=== PATIENT | female | born 1990 | race Caucasian/White ===

== ENCOUNTER 2019-03-26 14:50 | Emergency (ER) | payer OTHER ==
[2019-03-26] MEDS ORDERED: METOCLOPRAMIDE HCL 10 MG TABLET PO ONE (16:08)
[2019-03-26] MEDS ORDERED: METOCLOPRAMIDE HCL INJ/PF 10 MG/2 ML SDV IV ONE (16:11)
[2019-03-26] MEDS ORDERED: NORMAL SALINE 1000 ML 1,000 ML IV ONE (16:11)
--- NOTE | 2019-03-26 16:16 | ER Document Report ---
ED Medical Screen (RME) - General Chief Complaint: Nausea/Vomiting Stated Complaint: VOMITING Time Seen by Provider: 03/26/19 16:07 Mode of Arrival: Ambulatory Information source: Patient Notes: Patient is a 29-year-old G2, P1 who presents approximately 10 weeks with nausea and vomiting x3 days, unable to keep any food or drink down. She states she tried Unisom and B6 but it made her much worse. TRAVEL OUTSIDE OF THE [place] IN LAST 30 DAYS: No - Related Data Allergies/Adverse Reactions: No Known Allergies Allergy (Unverified 03/26/19 15:07) Past Medical History - General Information source: Patient - Social History Chew tobacco use (# tins/day): No Frequency of alcohol use: None Drug Abuse: None Renal/ Medical History: Denies: Hx Peritoneal Dialysis Review of Systems - Review of Systems Gastrointestinal: See HPI Female Genitourinary: See HPI Physical Exam - Vital signs Vitals: Temp Pulse Resp BP Pulse Ox 97.9 F 88 12 120/81 100 03/26/19 15:34 03/26/19 15:34 03/26/19 15:34 03/26/19 15:34 03/26/19 15:34 - Notes Notes: PHYSICAL EXAMINATION: GENERAL: Holding emesis bag, uncomfortable appearing, but in no acute distress. ABDOMEN: Soft, no tenderness. No guarding, no rebound Course - Vital Signs Vital signs: Temp Pulse Resp BP Pulse Ox 97.9 F 88 12 120/81 100 03/26/19 15:34 03/26/19 15:34 03/26/19 15:34 03/26/19 15:34 03/26/19 15:34
[2019-03-26 17:20] LABS: ABSOLUTE LYMPHOCYTES (AUTO) 2.4 10^3/uL (0.5-4.7); ABSOLUTE MONOCYTES (AUTO) 0.5 10^3/uL (0.1-1.4); BASOPHILS % (AUTO) 0.2 % (0-2); EOSINOPHILS % (AUTO) 0.2 % (0-6); HEMATOCRIT 42.2 % (36.0-47.0); HEMOGLOBIN 14.7 g/dL (12.0-15.5); LYMPHOCYTES % (AUTO) 21.9 % (13-45); MEAN CORPUSCULAR HEMOGLOBIN 31.5 pg (27.0-33.4); MEAN CORPUSCULAR HGB CONC 34.9 g/dL (32.0-36.0); MEAN CORPUSCULAR VOLUME 90 fl (80-97); MONOCYTES % (AUTO) 4.2 % (3-13); PLATELET COUNT 286 10^3/uL (150-450); RED BLOOD COUNT 4.67 10^6/uL (3.72-5.28); RED CELL DISTRIBUTION WIDTH 13.6 % (11.5-14.0); SEGMENTED NEUTROPHILS % (AUTO) 73.5 % (42-78); TOTAL CELLS COUNTED % (AUTO) 100 %; WHITE BLOOD COUNT 10.9 10^3/uL (4.0-10.5)
[2019-03-26 17:28] LABS: APPEARANCE,URINE CLOUDY; BILIRUBIN,URINE NEGATIVE (NEGATIVE); GLUCOSE, URINE NEGATIVE (NEGATIVE); KETONES,URINE 20 mg/dL (NEGATIVE); LEUKOCYTE ESTERASE,URINE LARGE (NEGATIVE); NITRITE,URINE NEGATIVE (NEGATIVE); PROTEIN,URINE NEGATIVE (NEGATIVE); URINE SPECIFIC GRAVITY 1.026; UROBILINOGEN,URINE NEGATIVE mg/dL (<2.0)
[2019-03-26 17:30] LABS: COLOR,URINE YELLOW
[2019-03-26 17:37] LABS: ALANINE AMINOTRANSFERASE 20 U/L (9-52); ALBUMIN 4.9 g/dL (3.5-5.0); ALKALINE PHOSPHATASE 45 U/L (38-126); ANION GAP 11 (5-19); ASPARTATE AMINO TRANSFERASE 23 U/L (14-36); BILIRUBIN,DIRECT 0.2 mg/dL (0.0-0.4); BILIRUBIN,TOTAL 0.5 mg/dL (0.2-1.3); BLOOD UREA NITROGEN 8 mg/dL (7-20); CARBON DIOXIDE 26 mmol/L (22-30); CHLORIDE 100 mmol/L (98-107); GLUCOSE 82 mg/dL (75-110); POTASSIUM 4.2 mmol/L (3.6-5.0); TOTAL PROTEIN 8.1 g/dL (6.3-8.2)
[2019-03-26] MEDS ORDERED: NITROFURANTOIN MONOHYD/M-CRYST 100 MG CAPSULE PO ONE (18:49)
--- NOTE | 2019-03-26 18:55 | ER Document Report ---
ED General - General Chief Complaint: Nausea/Vomiting Stated Complaint: VOMITING Time Seen by Provider: 03/26/19 16:07 Mode of Arrival: Ambulatory TRAVEL OUTSIDE OF THE [place] IN LAST 30 DAYS: No - HPI Notes: Patient is a 29-year-old female G7, P3 at 10 weeks gestation that presents to the emergency department for chief complaint of nausea and vomiting. Patient reports increased nausea and vomiting over the last 3 days. She called her [facility] office today who referred her to the ER for IV hydration. Patient denies any abdominal pain fevers or chills. She denies dysuria and urinary frequency. She has not had any pelvic pain, vaginal bleeding or vaginal discharge. She has seen OB throughout her and has not had any early complications. Patient received fluids and Reglan in triage and reports her nausea has completely resolved. She states she now feels hungry. She had been trying Unisom and B6 at home without much improvement. Past Medical History: Negative Past Surgical History: D&C x2 Social History: Denies drugs alcohol and tobacco Family History: Reviewed and noncontributory for presenting illness Allergies: Reviewed, see documented allergy list. REVIEW OF SYSTEMS: CONSTITUTIONAL : No fever No chills No diaphoresis No recent illness EENT: No vision changes No congestion No sore throat CARDIOVASCULAR: No chest pain No palpitations RESPIRATORY: No shortness of breath No cough No difficulty breathing GASTROINTESTINAL: No abdominal pain nausea vomiting No diarrhea GENITOURINARY: No dysuria No hematuria No difficulty urinating MUSCULOSKELETAL: No back pain No leg pain No arm pain SKIN: No rashes No lesions LYMPHATIC: No swollen, enlarged glands. NEUROLOGICAL: No lightheadedness No headache No weakness No paresthesias PSYCHIATRIC: No anxiety No depression PHYSICAL EXAMINATION: Vital signs reviewed, nursing noted reviewed. GENERAL: Well-appearing, well-nourished and in no acute distress. HEAD: Atraumatic, normocephalic. EYES: Eyes appear normal, extraocular movements intact, sclera anicteric, conjunctiva are normal. ENT: nares patent, oropharynx clear without exudates. Moist mucous membranes. NECK: Normal range of motion, supple without lymphadenopathy LUNGS: Breath sounds clear to auscultation bilaterally and equal. No wheezes rales or rhonchi. HEART: Regular rate and rhythm without murmurs ABDOMEN: Soft, nontender, normoactive bowel sounds. No rebound, guarding, or rigidity. No masses appreciated. EXTREMITIES: Nontender, good range of motion, no pitting or edema. NEUROLOGICAL: No focal neurological deficits. Moves all extremities spontaneously Motor and sensory grossly intact on exam. PSYCH: Normal mood, normal affect. SKIN: Warm, Dry, normal turgor, no rashes or lesions noted on exposed skin - Related Data Allergies/Adverse Reactions: No Known Allergies Allergy (Unverified 03/26/19 15:07) Past Medical History - General Information source: Patient - Social History Smoking Status: Never Smoker Chew tobacco use (# tins/day): No Frequency of alcohol use: None Drug Abuse: None Family History: Reviewed & Not Pertinent Patient has suicidal ideation: No Patient has homicidal ideation: No Renal/ Medical History: Denies: Hx Peritoneal Dialysis Physical Exam - Vital signs Vitals: Temp Pulse Resp BP Pulse Ox 97.9 F 88 12 120/81 100 03/26/19 15:34 03/26/19 15:34 03/26/19 15:34 03/26/19 15:34 03/26/19 15:34 Course - Re-evaluation Re-evalutation: 03/26/19 18:54 Vitals reviewed. Nursing notes reviewed. Patient is well-appearing and in no acute distress. She is currently asymptomatic since having treatment in triage. Her urinalysis is borderline. She does not currently have symptoms of UTIs but states she does get them frequently when she is not and more frequently when she is . Because her vomiting has increased in the last few days and this may be secondary to early UTI she will be started on Macrobid. She will follow closely with [facility] for reevaluation. She will continue to hydrate with water. We did discuss dietary changes to avoid aggravating foods like spicy food, fried food and citric foods. Patient is stable at discharge. Laboratory 03/26/19 03/26/19 03/26/19 16:30 16:30 16:30 WBC 10.9 H RBC 4.67 Hgb 14.7 Hct 42.2 MCV 90 MCH 31.5 MCHC 34.9 RDW 13.6 Plt Count 286 Seg Neutrophils % 73.5 Lymphocytes % 21.9 Monocytes % 4.2 Eosinophils % 0.2 Basophils % 0.2 Absolute Neutrophils 8.0 Absolute Lymphocytes 2.4 Absolute Monocytes 0.5 Absolute Eosinophils 0.0 Absolute Basophils 0.0 Sodium 137.1 Potassium 4.2 Chloride 100 Carbon Dioxide 26 Anion Gap 11 BUN 8 Creatinine 0.63 Est GFR ( Amer) > 60 Est GFR (Non-Af Amer) > 60 Glucose 82 Calcium 10.0 Total Bilirubin 0.5 Direct Bilirubin 0.2 Neonat Total Bilirubin Not Reportable Neonat Direct Bilirubin Not Reportable Neonat Indirect Bili Not Reportable AST 23 ALT 20 Alkaline Phosphatase 45 Total Protein 8.1 Albumin 4.9 Urine Color YELLOW Urine Appearance CLOUDY Urine pH 5.0 Ur Specific [place] 1.026 Urine Protein NEGATIVE Urine Glucose (UA) NEGATIVE Urine Ketones 20 H Urine Blood NEGATIVE Urine Nitrite NEGATIVE Urine Bilirubin NEGATIVE Urine Urobilinogen NEGATIVE Ur Leukocyte Esterase LARGE H Urine WBC (Auto) 9 Urine RBC (Auto) 2 Squamous Epi Cells Auto 35 Urine Mucus (Auto) MANY Urine Ascorbic Acid NEGATIVE - Vital Signs Vital signs: Temp Pulse Resp BP Pulse Ox 97.9 F 88 12 120/81 100 03/26/19 15:34 03/26/19 15:34 03/26/19 15:34 03/26/19 15:34 03/26/19 15:34 - Laboratory Result Diagrams: 03/26/19 16:30 03/26/19 16:30 Laboratory results interpreted by me: 03/26/19 03/26/19 16:30 16:30 WBC 10.9 H Urine Ketones 20 H Ur Leukocyte Esterase LARGE H Discharge - Discharge Clinical Impression: Vomiting affecting , Acute UTI Condition: Stable Disposition: HOME, SELF-CARE Instructions: ([facility]), Urinary Tract Infection ([facility]) Additional Instructions: Please return to the emergency department if you have any worsening, or concern of your symptoms. Please return to the emergency department if you develop chest pain, difficulty breathing, severe abdominal pain, or ongoing vomiting. Please follow-up with your primary care physician in 2-3 days and any other recommended physicians. If prescribed, take all medications as directed. If you have any questions or concerns do not hesitate to return the emergency department for evaluation. Contact your [facility] tomorrow to schedule a follow-up appointment in the next 2 to 3 days Prescriptions: Nitrofurantoin Macrocrystal [Macrodantin] 100 mg PO BID 5 Days capsule Referrals: [facility] [Provider Group] - Follow up as needed
[2019-03-26 19:04] VITALS: BP 103/72
== END 2019-03-26 19:21 | disposition home or self-care (01) ==
LOC: ER 14:50
DX: O21.9 Vomiting of pregnancy, unspecified (principal); O23.41 Unspecified infection of urinary tract in pregnancy, first trimester; Z3A.10 10 weeks gestation of pregnancy
CPT/HCPCS: 99283; 96361; 96374; 36415; 87086; 85025; 80053; 81001; J2765; J7030; J8499

== ENCOUNTER 2019-09-17 23:32 | Outpatient (CLI) | payer OTHER ==
[2019-09-18 00:03] LABS: APPEARANCE,URINE SLIGHTLY-CLOUDY; BILIRUBIN,URINE NEGATIVE (NEGATIVE); COLOR,URINE YELLOW; GLUCOSE, URINE NEGATIVE (NEGATIVE); KETONES,URINE NEGATIVE (NEGATIVE); LEUKOCYTE ESTERASE,URINE LARGE (NEGATIVE); NITRITE,URINE NEGATIVE (NEGATIVE); PROTEIN,URINE NEGATIVE (NEGATIVE); URINE SPECIFIC GRAVITY 1.019
[2019-09-18 00:15] LABS: URINE AMPHETAMINES SCREEN NEGATIVE; URINE BARBITURATES SCREEN NEGATIVE; URINE BENZODIAZEPINES SCREEN NEGATIVE; URINE COCAINE SCREEN NEGATIVE; URINE MARIJUANA (THC) SCREEN NEGATIVE; URINE METHADONE SCREEN NEGATIVE; URINE PHENCYCLIDINE SCREEN NEGATIVE
--- NOTE | 2019-09-18 00:44 | Non Stress Test Report ---
Non Stress Test Datetime Report Generated by CPN: 09/18/2019 00:43 DEMOGRAPHIC EGA NST: 35.2 EGA NST: 33.0 INDICATION Indication for Study (NST) Other: LC- pre-E eval VITAL SIGNS Temperature - NST: 98.0 RESP - NST: 16 MONITORING Monitor Explained: Monitor Explained; Test Explained; Patient Verbalized Understanding Time on Monitor: 09/17/2019 23:50 Time on Monitor: 09/01/2019 09:04 Time off Monitor: 09/18/2019 00:33 NST Duration: 43 NST INTERVENTIONS NST Interventions: Reposition Patient NST Interventions: PO Hydration; Reposition Patient Physician Notified NST: Dr. Ignacio Physician Notified NST: Dr. Ignacio on unit, reviewed BABY A: [id number] BABY A Movement : Present Contraction Frequency : none Contraction Frequency : none FHR Baseline : 130 Accelerations : 15X15 Decelerations : None Variability : Moderate 6-25bpm NST Review: Meets Criteria for Reactive NST NST Review and Verified By : Steve Aguilar RN NST Results: Reactive NST REPORT Report Trigger: Send Report
== END 2019-09-18 00:42 | disposition home or self-care (01) ==
LOC: LC 23:32
PROVIDERS: ATTEND Obstetrics & Gynecology
PROC: 4A1HXCZ Monitoring of Products of Conception, Cardiac Rate, External Approach (ICD-10-PCS; principal; 2019-09-17)
DX: O16.3 Unspecified maternal hypertension, third trimester (principal); Z3A.35 35 weeks gestation of pregnancy
CPT/HCPCS: 80307; 81001

== ENCOUNTER 2019-10-09 19:26 | Outpatient (CLI) | payer OTHER ==
[2019-10-09 20:00] LABS: APPEARANCE,URINE CLOUDY; BILIRUBIN,URINE NEGATIVE (NEGATIVE); COLOR,URINE YELLOW; GLUCOSE, URINE NEGATIVE (NEGATIVE); KETONES,URINE NEGATIVE (NEGATIVE); LEUKOCYTE ESTERASE,URINE LARGE (NEGATIVE); NITRITE,URINE NEGATIVE (NEGATIVE); PROTEIN,URINE NEGATIVE (NEGATIVE); URINE SPECIFIC GRAVITY 1.016; UROBILINOGEN,URINE NEGATIVE mg/dL (<2.0)
[2019-10-09 20:19] LABS: URINE AMPHETAMINES SCREEN NEGATIVE; URINE BARBITURATES SCREEN NEGATIVE; URINE BENZODIAZEPINES SCREEN NEGATIVE; URINE COCAINE SCREEN NEGATIVE; URINE MARIJUANA (THC) SCREEN NEGATIVE; URINE METHADONE SCREEN NEGATIVE; URINE PHENCYCLIDINE SCREEN NEGATIVE
--- NOTE | 2019-10-09 21:52 | Non Stress Test Report ---
Non Stress Test Datetime Report Generated by CPN: 10/09/2019 21:52 DEMOGRAPHIC EGA NST: 38.3 INDICATION Indication for Study (NST) Other: 38.3 gestation with discharge MONITORING Monitor Explained: Monitor Explained; Test Explained; Patient Verbalized Understanding Time on Monitor: 10/09/2019 19:43 Time off Monitor: 10/09/2019 20:11 NST Duration: 28 NST INTERVENTIONS NST Interventions: PO Hydration Physician Notified NST: Dr. Younger BABY A: [id number] BABY A Movement : Present Contraction Frequency : 2-11 FHR Baseline : 130 Accelerations : 15X15 Decelerations : None Variability : Moderate 6-25bpm NST Review: Meets Criteria for Reactive NST NST Review and Verified By : D Bellavance RN NST Results: Reactive NST REPORT Report Trigger: Send Report
== END 2019-10-09 20:18 | disposition home or self-care (01) ==
LOC: LC 19:26
PROVIDERS: ATTEND Obstetrics & Gynecology
PROC: 4A1HXCZ Monitoring of Products of Conception, Cardiac Rate, External Approach (ICD-10-PCS; principal; 2019-10-09)
DX: O47.1 False labor at or after 37 completed weeks of gestation (principal); Z3A.38 38 weeks gestation of pregnancy
CPT/HCPCS: 80307; 81005; 84112

== ENCOUNTER 2019-10-14 06:50 | Inpatient (IN) | payer OTHER ==
[2019-10-14] MEDS ORDERED: MISOPROSTOL 0.2 MG TABLET ONE (07:35)
[2019-10-14] MEDS ORDERED: LIDOCAINE 1% INJ-PF (10 MG/ML) 30 ML SDV ONE (07:35)
[2019-10-14] MEDS ORDERED: OXYTOCIN/NORMAL SALINE 0 UNIT/0 ML RTUINJ ONE (07:35)
[2019-10-14] MEDS ORDERED: OXYTOCIN 10 UNIT/ML VIAL ONE (07:35)
[2019-10-14] MEDS ORDERED: DINOPROSTONE 10 MG VAGINAL INSERT.SR PV PRN (07:55)
[2019-10-14] MEDS ORDERED: RINGERS SOLUTION,LACTATED 300 ML IV ONE (07:55)
[2019-10-14] MEDS ORDERED: OXYTOCIN/NORMAL SALINE 20 UNIT/1,000 ML RTUINJ IV PRN ×2 (07:55→18:27)
--- NOTE | 2019-10-14 08:23 | Admission Physical ---
Datetime Report Generated by CPN: 10/14/2019 08:22 CURRENT ADMISSION Indication for Induction- Other: GDM- on glyburide Admit Impression : Term, Intrauterine ; Intact Membranes Admit Plan: Admit to Unit; Initiate Labor Induction Protocol ALLERGIES Medication Allergies: No Medication Allergies: No Known Allergies (10/14/2019) Latex: No Latex Allergies Food Allergies: none Environmental Allergies: none OBSTETRICAL HISTORY EDC: 10/20/2019 00:00 : 7 Para: 3 Term: 3 : 0 SAB: 0 IAB: 0 Ectopic: 0 Livin Cesareans: 0 VBACs: 0 Multiple Births: 0 Gestational Diabetes: No Rh Sensitization: No Incompetent Cervix: No CHARLIE: No Infertility: No ART Treatment: No Uterine Anomaly: No IUGR: No Hx Previous C/S: No Macrosomia: No Hx Loss/Stillborn: No PIH: No Hx : No Placenta Previa/Abruption: No Depression/PP Depression: Yes PTL/PROM: No Post Hemorrhage: No Current Procedures: Ultrasound; NST Obstetrical History Comments: G1: 2008, vaginal G2: 2010, SAB G3: 2013, vaginal G4: 2016, vaginal SEE RECORDS Alcohol: No Marijuana : No Cocaine: No Other Illicit Drugs: No Cigarettes: Never Smoker. 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 Heart Disease: No Hosp/Surgery: Yes Autoimmune Disorder: No Anesthetic Complications: No Kidney Disease: No Abnormal Pap Smear: No Neuro/Epilepsy: No Psychiatric Disorders: Yes Other Medical Diseases: No Hepatitis/Liver Disease: No Significant Family History: No Varicosities/Phlebitis: No Trauma/Violence : No Thyroid Dysfunction: No Medical History Comments: anxiety, D_C march 2013 and january 2019 INFECTIOUS HISTORY Gonorrhea: No Genital Herpes: No Chlamydia: Yes Tuberculosis: No Syphilis: No Hepatitis: No HIV/AIDS Exposure: No Rash or Viral Illness: No HPV: Yes Infectious History Comments: chlamydia test to cure Jul 2019 (Annotations: Data stored by [facility] on behalf of user) PHYSICAL EXAM General: Normal HEENT: Normal Neurologic: Normal Thyroid: Normal Heart: Normal Lungs: Normal Breast: Normal Back: Normal Abdomen: Normal Genitourinary Exam: Normal Extremities: Normal DTRs: Normal Pelvic Type: Adequate Vital Signs: Reviewed; Within Normal Limits VAGINAL EXAM Contraction Comments: irritability MEMBRANES Membranes: Intact FETUS A Monitoring: External US FHR- Baseline: 135 Variability: Moderate 6-25bpm Accelerations: 15X15 Decelerations: None FHR Category: Category I Admit Comment: here this morning for IOL. Hx GDM-on glyburide this . GBS negative. Hx +chlamydia w/ negative JONATAN result on 09/23/19. Pt doing well this morning, no complaints of SROM or contractions. States was 3-4 cm at last VE check. Orders for Pitocin. Plan of care discussed w/ patient. She is considering an epidural- states usually gets one, and goes fast once she is in active labor. Vertex on leapolds this morning. Cat 1 FHR tracing. EFW 7 pounds. Attending MD is Dr Kline. PLANS FOR LABOR AND DELIVERY Labor and Delivery: None Pain Management: Medications; Epidural Feeding Preference: Both Benefit of Breast Feed Discussed: Yes Circumcision: N/A INFORMED CONSENT Assignment: Sharmaine Kline MD Signature: with User ID: [email or web address] : with User ID: [email or web address]
[2019-10-14] MEDS: RINGERS SOLUTION,LACTATED 1,000 ML IV PRN ×2 (08:45→15:17)
[2019-10-14 09:15] LABS: ABSOLUTE BASOPHILS # (AUTO) 0.1 10^3/uL (0.0-0.2); ABSOLUTE LYMPHOCYTES (AUTO) 1.9 10^3/uL (0.5-4.7); ABSOLUTE MONOCYTES (AUTO) 0.4 10^3/uL (0.1-1.4); ABSOLUTE NEUT (AUTO) 7.8 10^3/uL (1.7-8.2); BASOPHILS % (AUTO) 0.5 % (0-2); EOSINOPHILS % (AUTO) 0.4 % (0-6); HEMOGLOBIN 11.8 g/dL (12.0-15.5); LYMPHOCYTES % (AUTO) 18.4 % (13-45); MEAN CORPUSCULAR HEMOGLOBIN 29.2 pg (27.0-33.4); MEAN CORPUSCULAR HGB CONC 34.7 g/dL (32.0-36.0); MEAN CORPUSCULAR VOLUME 84 fl (80-97); MONOCYTES % (AUTO) 4.4 % (3-13); PLATELET COUNT 263 10^3/uL (150-450); RED BLOOD COUNT 4.04 10^6/uL (3.72-5.28); RED CELL DISTRIBUTION WIDTH 15.3 % (11.5-14.0); SEGMENTED NEUTROPHILS % (AUTO) 76.3 % (42-78); TOTAL CELLS COUNTED % (AUTO) 100 %; WHITE BLOOD COUNT 10.2 10^3/uL (4.0-10.5)
[2019-10-14 09:22] LABS: APPEARANCE,URINE CLOUDY; BILIRUBIN,URINE NEGATIVE (NEGATIVE); COLOR,URINE YELLOW; GLUCOSE, URINE NEGATIVE (NEGATIVE); KETONES,URINE NEGATIVE (NEGATIVE); LEUKOCYTE ESTERASE,URINE LARGE (NEGATIVE); NITRITE,URINE NEGATIVE (NEGATIVE); PROTEIN,URINE NEGATIVE (NEGATIVE); URINE SPECIFIC GRAVITY 1.013; UROBILINOGEN,URINE NEGATIVE mg/dL (<2.0)
[2019-10-14 09:37] LABS: URINE AMPHETAMINES SCREEN NEGATIVE; URINE BARBITURATES SCREEN NEGATIVE; URINE BENZODIAZEPINES SCREEN NEGATIVE; URINE COCAINE SCREEN NEGATIVE; URINE MARIJUANA (THC) SCREEN NEGATIVE; URINE METHADONE SCREEN NEGATIVE; URINE PHENCYCLIDINE SCREEN NEGATIVE
[2019-10-14] MEDS ORDERED: BUPIVACAINE HCL 0.25 % INJ/PF (2.5 MG/1 ML) 30 ML VIAL ONE (15:19)
[2019-10-14] MEDS ORDERED: EPHEDRINE SULFATE INJ 50 MG/1 ML AMPULE ONE (15:19)
[2019-10-14] MEDS ORDERED: FENTANYL/BUPIVACAINE/NS/PF 300 MCG/150 ML RTUINJ EPI ONE (15:19)
[2019-10-14] MEDS ORDERED: DIPH/PERTUSS(ACELL)/TETANUS VAC/PF 0.5 ML SYR (>=10YO) IM PRN (18:27)
[2019-10-14] MEDS ORDERED: PROMETHAZINE HCL 25 MG SUPP.RECT PR PRN (18:27)
[2019-10-14] MEDS ORDERED: PSEUDOEPHEDRINE HCL 30 MG TABLET PO PRN (18:27)
[2019-10-14] MEDS ORDERED: PROMETHAZINE HCL 25 MG TABLET PO PRN (18:27)
[2019-10-14] MEDS ORDERED: GLYCERIN/WITCH HAZEL LEAF 1 EACH MED..WIPE TP PRN (18:27)
[2019-10-14] MEDS ORDERED: MEASLES,MUMPS&RUBELLA VACC/PF 0.5 ML VIAL SUBCUT PRN (18:27)
[2019-10-14] MEDS ORDERED: DIPHENHYDRAMINE HCL 25 MG CAPSULE PO PRN (18:27)
[2019-10-14] MEDS ORDERED: BENZOCAINE/MENTHOL AEROSOL SPRAY 56 ML TOP PRN (18:27)
[2019-10-14] MEDS ORDERED: ACETAMINOPHEN WITH CODEINE #3 TABLET PO PRN ×2 (18:27)
[2019-10-14] MEDS ORDERED: PROMETHAZINE HCL INJ 25 MG/1 ML VIAL IV PRN (18:27)
[2019-10-14] MEDS ORDERED: ACETAMINOPHEN 650 MG SUPP.RECT PR PRN (18:27)
[2019-10-14] MEDS ORDERED: DIBUCAINE 1% OINTMENT 28 GM TP PRN (18:27)
[2019-10-14] MEDS ORDERED: NA PHOS,M-B/NA PHOS,DI-BA (ADULT) 133 ML ENEMA PR PRN (18:27)
[2019-10-14] MEDS ORDERED: MAGNESIUM HYDROXIDE SUSP 30 ML UDCUP PO PRN (18:27)
[2019-10-14] MEDS ORDERED: ZOLPIDEM TARTRATE 5 MG TABLET PO PRN (18:27)
--- NOTE | 2019-10-14 19:01 | Warning Signs in Babies ---
VOD Warning Signs Datetime Report Generated by [facility]: 10/14/2019 19:01 VOD#[id number] -Warning Signs in Babies: Viewed with Parent(s)/Family (09/01/2019 09:01:Aaliyah Pagan RN)
--- NOTE | 2019-10-14 19:03 | Warning Signs in Babies ---
VOD Warning Signs Datetime Report Generated by [facility]: 10/14/2019 19:02 VOD#608 -Warning Signs in Babies: Viewed with Parent(s)/Family (10/14/2019 18:55:Aaliyah Pagan RN)
--- NOTE | 2019-10-14 19:54 | Delivery Summary ---
Del Sum A-C Datetime Report Generated by CPN: 10/14/2019 19:53 DELIVERY PERSONNEL DELIVERY PERSONNEL: [id number] Delivery Doctor:: Sharmaine Kline MD Labor and Delivery Nurse:: Aaliyah Pagan RNbaler operator Nurse:: Tessie Knight RN [place] Maintenance Worker/RECEIVING MANAGER: Janneth Serrato, TEXTILE SCREEN PRINTER MATERNAL INFORMATION Delivery Anesthesia: Epidural Medications After Delivery: Pitocin Drip 20 Units/1000ml NSS Estimated Blood Loss (ml): 25 Delivery QBL: 25 Maternal Complications: None Provider Comments: VFI delivered in JONATHAN presentation. no nuchal cord. Shoulders and body delivered without difficulty. Cord doubly clamped and cut and to maternal abdomen for NRP. Placenta delivered intact spontaneously. FF at U. NO perineal lacerations. Good hemostasis. Mother and baby stable upon provider leaving the room. LABOR SUMMARY EDC: 10/20/2019 00:00 No. Babies in Womb: 1 Labor Anesthesia: Epidural LABOR INFORMATION Reason for Induction: Maternal Diabetes Onset of Labor: 10/14/2019 14:14 Complete Dilatation: 10/14/2019 17:44 Oxytocin: Induction Group B Beta Strep: negative Antibiotics # of Doses: none Antibiotics Time of Last Dose: none Name of Antibiotic Given: none Steroids Given: None Reason Steroids Not Administered: Not Applicable MEMBRANES Membranes Rupture Method: Artificial Rupture of Membranes: 10/14/2019 14:14 Length of Rupture (hr): 3.70 Amniotic Fluid Color: Clear Amniotic Fluid Amount: Scant Amniotic Fluid Odor: None STAGES OF LABOR Stage 1 hr: 3 Stage 1 min: 30 Stage 2 hr: 0 Stage 2 min: 12 Stage 3 hr: 0 Stage 3 min: 5 Total Time in Labor hr: 3 Total Time in Labor min: 47 VAGINAL DELIVERY Episiotomy: None Laceration #1: None Laceration Extension #1: N/A Laceration Repair: Not Applicable Sponge Count Correct: Yes Sharps Count Correct: N/A CSECTION DELIVERY Primary Indication: N/A Secondary Indication: N/A CSection Incidence: N/A Labor: N/A Elective: N/A CSection Incision: N/A BABY A INFORMATION Delivery Date/Time: 10/14/2019 17:56 Method of Delivery: Vaginal Born in Route : No : N/A Forceps: N/A Vacuum Extraction: N/A Shoulder Dystocia : No PRESENTATION/POSITION BABY A Presentation: Cephalic Cephalic Presentation: Vertex Breech Presentation: N/A PLACENTA INFORMATION BABY A Placenta Delivery Time : 10/14/2019 18:01 Placenta Method of Delivery: Spontaneous Placenta Status: Delivered SCORES BABY A Heart Rate 1 min: >100 bpm Resp Effort 1 min: Good Cry Reflex Irritability 1 min: Cough or Sneeze or Pulls Away Muscle Tone 1 min: Active Motion Color 1 min: Body [place], Extremities Blue Resuscitation Effort 1 min: Tactile Stimulation SCORE 1 MIN: 9 Heart Rate 5 min: >100 bpm Resp Effort 5 min: Good Cry Reflex Irritability 5 min: Cough or Sneeze or Pulls Away Muscle Tone 5 min: Active Motion Color 5 min: Body [place], Extremities Blue Resuscitation Effort 5 min: N/A SCORE 5 MIN: 9 INFORMATION BABY A Gestational Age at Delivery: 39.1 Gestational Status: Full Term- 39- 40.6 Weeks Infant Outcome : Liveborn Infant Condition : Stable Sex: Female IDENTIFICATION BABY A Verification Date/Time: 10/14/2019 18:48 ID Band Number: [id number] Mother's Name Verified: Yes RN Verifying : MMobley Additional Verifying Personnel: MJorge WEIGHT/LENGTH BABY A Infant Birthweight (gm): 2977 Weight (lb): 6 Infant Weight (oz): 9 Length (in): 19.00 Infant Length (cm): 48.26 CORD INFORMATION BABY A No. Cord Vessels: 3 Nuchal Cord : N/A Cord Blood Taken: Yes-For Eval (Mom's Blood Type - or O+) Infant Suction: None ASSESSMENT BABY A Skin to Skin: Yes BABY B INFORMATION : N/A SIGNATURES Signature: with User ID: Az
[2019-10-14] MEDS: IBUPROFEN 800 MG TABLET PO SCH (21:51)
[2019-10-14] MEDS: FAMOTIDINE 20 MG TABLET PO SCH (21:51)
[2019-10-15] MEDS: IBUPROFEN 800 MG TABLET PO SCH ×3 (05:22→22:37)
[2019-10-15 07:03] LABS: HEMATOCRIT 30.5 % (36.0-47.0); HEMOGLOBIN 10.5 g/dL (12.0-15.5); MEAN CORPUSCULAR HEMOGLOBIN 29.3 pg (27.0-33.4); MEAN CORPUSCULAR HGB CONC 34.4 g/dL (32.0-36.0); MEAN CORPUSCULAR VOLUME 85 fl (80-97); PLATELET COUNT 226 10^3/uL (150-450); RED BLOOD COUNT 3.58 10^6/uL (3.72-5.28); RED CELL DISTRIBUTION WIDTH 15.8 % (11.5-14.0); WHITE BLOOD COUNT 8.9 10^3/uL (4.0-10.5)
[2019-10-15] MEDS: SENNOSIDES/DOCUSATE 8.6-50 MG 1 EACH TABLET PO SCH (09:12)
[2019-10-15] MEDS: FERROUS SULFATE 325 MG TABLET PO SCH ×2 (09:12→18:13)
[2019-10-15] MEDS: DOCUSATE SODIUM 100 MG CAPSULE PO SCH ×2 (09:12→18:13)
[2019-10-15] MEDS: PRENATAL VITAMIN W DHA CAPSULE PO SCH (09:12)
[2019-10-15] MEDS: FAMOTIDINE 20 MG TABLET PO SCH ×2 (09:12→22:37)
--- NOTE | 2019-10-15 10:54 | PDOC PROGRESS REPORT ---
Subjective-OB Progress Note for:: 10/15/19 Subjective: Pt doing well, baby. Reports light bleeding, reg diet and voiding without difficulty. No concerns. Physical Exam (OB) Vital Signs: Temp Pulse Resp BP Pulse Ox 98.5 F 88 16 117/77 98 10/15/19 08:00 10/15/19 08:00 10/15/19 08:00 10/15/19 08:00 10/15/19 08:00 Intake & Output 10/14/19 10/15/19 10/16/19 06:59 06:59 06:59 Intake Total 1450 Balance 1450 Weight 104.4 kg - PIH/Pre-Eclampsia DTR's: 2 + Clonus: Negative Headache: Absent Epigastric Pain: No Visual Changes: No - Lochia Lochia Amount: Scant < 10 ml Lochia Color: Rubra/Red - Abdomen Description: Soft, Flat Hernia Present: No Fundal Description: Firm Fundal Height: u/u - u/2 Objective-Diagnostic Laboratory: 10/15/19 06:34 10/14/19 10/15/19 08:50 06:34 WBC 8.9 RBC 3.58 L Hgb 10.5 L Hct 30.5 L MCV 85 MCH 29.3 MCHC 34.4 RDW 15.8 H Plt Count 226 Blood Type O NEGATIVE Antibody Screen POSITIVE Assessment and Plan(PN) - Assessment and Plan (1) Normal course Is this a current diagnosis for this admission?: Yes (2) Gestational diabetes mellitus (GDM) during childbirth controlled on oral hypoglycemic therapy Is this a current diagnosis for this admission?: Yes (3) Vaginal delivery Is this a current diagnosis for this admission?: Yes - Time Spent with Patient Time with patient: Less than 15 minutes Medications reviewed and adjusted accordingly: Yes - Disposition Anticipated Discharge: Home Within: within 24 hours
[2019-10-16] MEDS: IBUPROFEN 800 MG TABLET PO SCH ×2 (05:43→15:19)
[2019-10-16] MEDS: DOCUSATE SODIUM 100 MG CAPSULE PO SCH (09:40)
[2019-10-16] MEDS: PRENATAL VITAMIN W DHA CAPSULE PO SCH (09:40)
[2019-10-16] MEDS: FERROUS SULFATE 325 MG TABLET PO SCH (09:40)
[2019-10-16] MEDS: FAMOTIDINE 20 MG TABLET PO SCH (09:40)
[2019-10-16] MEDS: SENNOSIDES/DOCUSATE 8.6-50 MG 1 EACH TABLET PO SCH (09:40)
--- NOTE | 2019-10-16 12:48 | PDOC DISCHARGE SUMMARY ---
Impression - Admit/DC Date/PCP Admission Date/Primary Care Provider: 10/14/19 06:50 BO RATLIFF MD Discharge Date: 10/16/19 - Discharge Diagnosis (1) Gestational diabetes mellitus (GDM) during childbirth controlled on oral hypoglycemic therapy Is this a current diagnosis for this admission?: Yes (2) Normal course Is this a current diagnosis for this admission?: Yes (3) Vaginal delivery Is this a current diagnosis for this admission?: Yes - Additional Information Discharge Diet: Regular Discharge Activity: Balance Activity w/Rest, Pelvic Rest Referrals: BO RATLIFF MD [Primary Care Provider] - Prescriptions: Docusate Sodium [Colace 100 mg Capsule] 100 mg PO BID #60 capsule Ibuprofen [Motrin 800 mg Tablet] 800 mg PO Q8HP PRN #60 tablet PRN Reason: Home Medications: No122/Iron/Folic Acid [ Multi Tablet] 1 tab PO DAILY 09/01/19 Docusate Sodium [Colace 100 mg Capsule] 100 mg PO BID #60 capsule 10/16/19 Ibuprofen [Motrin 800 mg Tablet] 800 mg PO Q8HP PRN #60 tablet 10/16/19 HPI Gestational Age: 39+1 Reason(s) for Admission: Induction of Labor Procedures: NST Intrapartum Procedure(s): Spontaneous Vaginal Delivery Results Laboratory Results: WBC 8.9 10^3/uL (4.0-10.5) 10/15/19 06:34 RBC 3.58 10^6/uL (3.72-5.28) L 10/15/19 06:34 Hgb 10.5 g/dL (12.0-15.5) L 10/15/19 06:34 Hct 30.5 % (36.0-47.0) L 10/15/19 06:34 MCV 85 fl (80-97) 10/15/19 06:34 MCH 29.3 pg (27.0-33.4) 10/15/19 06:34 MCHC 34.4 g/dL (32.0-36.0) 10/15/19 06:34 RDW 15.8 % (11.5-14.0) H 10/15/19 06:34 Plt Count 226 10^3/uL (150-450) 10/15/19 06:34 Lymph % (Auto) 18.4 % (13-45) 10/14/19 08:50 Major % (Auto) 4.4 % (3-13) 10/14/19 08:50 Eos % (Auto) 0.4 % (0-6) 10/14/19 08:50 Baso % (Auto) 0.5 % (0-2) 10/14/19 08:50 Absolute Neuts (auto) 7.8 10^3/uL (1.7-8.2) 10/14/19 08:50 Absolute Lymphs (auto) 1.9 10^3/uL (0.5-4.7) 10/14/19 08:50 Absolute Monos (auto) 0.4 10^3/uL (0.1-1.4) 10/14/19 08:50 Absolute Eos (auto) 0.0 10^3/uL (0.0-0.6) 10/14/19 08:50 Absolute Basos (auto) 0.1 10^3/uL (0.0-0.2) 10/14/19 08:50 Seg Neutrophils % 76.3 % (42-78) 10/14/19 08:50 Urine Color YELLOW 10/14/19 06:57 Urine Appearance CLOUDY 10/14/19 06:57 Urine pH 6.0 (5.0-9.0) 10/14/19 06:57 Ur Specific [place] 1.013 10/14/19 06:57 Urine Protein NEGATIVE mg/dL (NEGATIVE) 10/14/19 06:57 Urine Glucose (UA) NEGATIVE mg/dL (NEGATIVE) 10/14/19 06:57 Urine Ketones NEGATIVE mg/dL (NEGATIVE) 10/14/19 06:57 Urine Blood NEGATIVE (NEGATIVE) 10/14/19 06:57 Urine Nitrite NEGATIVE (NEGATIVE) 10/14/19 06:57 Urine Bilirubin NEGATIVE (NEGATIVE) 10/14/19 06:57 Urine Urobilinogen NEGATIVE mg/dL (<2.0) 10/14/19 06:57 Ur Leukocyte Esterase LARGE (NEGATIVE) H 10/14/19 06:57 Urine Ascorbic Acid NEGATIVE (NEGATIVE) 10/14/19 06:57 Urine Opiates Screen NEGATIVE 10/14/19 06:57 Urine Methadone Screen NEGATIVE 10/14/19 06:57 Ur Barbiturates Screen NEGATIVE 10/14/19 06:57 Ur Phencyclidine Scrn NEGATIVE 10/14/19 06:57 Ur Amphetamines Screen NEGATIVE 10/14/19 06:57 U Benzodiazepines Scrn NEGATIVE 10/14/19 06:57 Urine Cocaine Screen NEGATIVE 10/14/19 06:57 U Marijuana (THC) Screen NEGATIVE 10/14/19 06:57 RPR NONREACTIVE (NONREACTIVE) 10/14/19 08:50 Blood Type O NEGATIVE 10/14/19 08:50 Cord Blood Type Cancelled 10/14/19 17:56 Antibody Screen POSITIVE 10/14/19 08:50 Mother's Antibody Screen Cancelled 10/14/19 17:56 Antibody Identification RHOGAM INDUCED ANTI-D 10/14/19 08:50 Mother's Med Rec Num Cancelled 10/14/19 17:56 Mother's Blood Type Cancelled 10/14/19 17:56 Plan Plan of Treatment: follow up in 4 weeks at [facility] for post check
[2019-10-16 17:22] VITALS: BP 117/77
== END 2019-10-16 17:53 | disposition home or self-care (01) | DRG 807 ==
LOC: LR 06:50 → 2S 20:18
PROVIDERS: ADMIT Obstetrics & Gynecology Gynecology; ATTEND Student in an Organized Health Care Education/Training Program
PROC: 10E0XZZ Delivery of Products of Conception, External Approach (ICD-10-PCS; principal; 2019-10-14)
PROC: 10907ZC Drainage of Amniotic Fluid, Therapeutic from Products of Conception, Via Natural or Artificial Opening (ICD-10-PCS; 2019-10-14)
DX: O24.425 Gestational diabetes mellitus in childbirth, controlled by oral hypoglycemic drugs (principal); O99.344 Other mental disorders complicating childbirth; F41.9 Anxiety disorder, unspecified; Z86.19 Personal history of other infectious and parasitic diseases; Z37.0 Single live birth; Z3A.39 39 weeks gestation of pregnancy
CPT/HCPCS: 36415; 80307; 81005; 85025; 85027; 86592; 86850; 86870; 86900; 86901; 88307; J2590; J3010; J3490